=== PATIENT | male | born 1995 | race Caucasian/White ===

== ENCOUNTER 2021-08-31 18:48 | Emergency (ER) | payer OTHER ==
[~2021-08-31] VITALS: Ht 175.3 cm; Wt 93.0 kg
[2021-08-31] MEDS ORDERED: CIPRO500 MG PO (22:11)
== END 2021-08-31 23:01 | disposition home or self-care (01) ==
LOC: ER 18:48
DX: B34.9 Viral infection, unspecified (principal); K52.9 Noninfective gastroenteritis and colitis, unspecified; B96.89 Other specified bacterial agents as the cause of diseases classified elsewhere; Z20.822 Contact with and (suspected) exposure to COVID-19; R11.11 Vomiting without nausea